=== PATIENT | male | born 1970 | race Caucasian/White ===

== ENCOUNTER 2017-03-27 11:10 | Emergency (ER) | payer OTHER ==
--- NOTE | ~2017-03-27 | CR72 ---
[facility] A Service of [facility] RADIOLOGY TEXT RESULTS PATIENT: LUIGI ORTEGA JR LOCATION: [facility] : 74 UNIT #: [id number] AGE: [address]: Fawn Chen MD SEX: M ORDER DR: [id number] [facility] [address] [place], [place] [address] [id number] E MR#: [id number] #: [id number] NAME: LUIGI ORTEGA JR : 1970 SEX: M STUDY DATE/TIME: 03/27/2017 13:37 UNIT: [facility] ROOM: STUDY DESCRIPTION: CR Chest Single View Portable Attending Physician: Fawn Chen M.D. Ordering Physician: Fawn Cehn M.D. Primary Care Physician: Tresa Georges Np MEDICAL IMAGING REPORT This report is preliminary unless electronic signature is present EXAM Portable chest x-ray, 03/27/2017. HISTORY Trauma. Possible fall. Patient states he falls all the time. Right-sided chest pain. Altered mental status. Short of air. Symptoms began today. TECHNIQUE Two AP radiographs of the chest are presented. COMPARISON 03/12/2016 FINDINGS There are bilateral rib fractures which appear healed and given differences in obliquity appear unchanged from 03/12/2016. There is no clear indication of acute bony abnormality. The heart is upper limits of normal in size. This is stable. The lungs are well inflated without evidence of acute pulmonary disease. No pleural effusion or pneumothorax. No suspicious nodule. Linear atelectasis or scarring at the left lung base. Dictated by... Puma Muro M.D. THIS IS AN ELECTRONICALLY VERIFIED REPORT Puma Muro M.D. at 03/30/2017 5:50 PM VICTORIA/branden [facility] A Service of [facility] RADIOLOGY TEXT RESULTS PATIENT: LUIGI ORTEGA JR LOCATION: [facility] : 74 UNIT #: [id number] AGE: [address]: Fawn Chne MD SEX: M ORDER DR: TD: 03/27/2017 22:17 JOB #: [id number] MEDICAL IMAGING REPORT Page 1 of 1 COPY
--- NOTE | ~2017-03-27 | CT71 ---
[facility] A Service [facility] RADIOLOGY TEXT RESULTS PATIENT: LUIGI ORTEGA JR LOCATION: [facility] : 74 UNIT #: [id number] AGE: [address]: Fawn Chen MD SEX: M ORDER DR: [id number] [facility] [address] [place], [place] [address] [id number] E MR#: [id number] Acc #: [id number] NAME: LUIGI ORTEGA JR : 1970 SEX: M STUDY DATE/TIME: 03/27/2017 16:40 UNIT: [facility] ROOM: STUDY DESCRIPTION: CT Head Wo Contrast Attending Physician: Fawn Chen M.D. Ordering Physician: Fawn Chen M.D. Primary Care Physician: Tresa Georges Np MEDICAL IMAGING REPORT This report is preliminary unless electronic signature is present EXAM Head CT without contrast HISTORY Patient fell today. Head injury. TECHNIQUE Axial images were obtained without contrast. This CT exam was performed with one or more of the following radiation dose reduction techniques: automatic exposure control, adjustment of mA and/or kV according to patient size, and iterative reconstruction. FINDINGS Mild generalized atrophy is seen. There is no evidence of mass lesion, hemorrhage or edema. No midline shift is noted. Extraaxial structures are unremarkable. IMPRESSION Mild atrophy. No acute findings. Dictated by... Mikey Givens M.D. THIS IS AN ELECTRONICALLY VERIFIED REPORT Mikey Givens M.D. at 04/01/2017 4:52 PM RLF/alex TD: 03/27/2017 23:49 JOB #: [id number] [facility] A Service [facility] RADIOLOGY TEXT RESULTS PATIENT: LUIGI ORTEGA JR LOCATION: [facility] : 74 UNIT #: [id number] AGE: [address]: Fawn Chen MD SEX: M ORDER DR: MEDICAL IMAGING REPORT Page 1 of 1 COPY
[~2017-03-27 11:10] MED LIST: ALBUTEROL17 GM; CYANOCOBAL1000 MCG/1 INJ; CYMBALTA30 MG PO; FLEXERIL10 MG PO; GABAPENTIN800 MG PO; LISINOPRIL-HCTZ1 T14 PO; NEURONTIN800 MG PO; NORCO 10/3251 TAB PO; OMEPRAZOLE20 M2 PO; PRILOSEC20 M1 PO; ZYVOX600 MG PO
[2017-03-27 14:23] LABS: URINE SOURCE CLEAN CATCH
[2017-03-27 14:39] LABS: URINE APPEARANCE CLEAR; URINE BILIRUBIN NEG (NEG); URINE BLOOD NEG (NEG); URINE COLOR YELLOW; URINE GLUCOSE NEG (NEG); URINE KETONE NEG (NEG); URINE LEUKOCYTE ESTERASE NEG (NEG); URINE NITRATE NEG (NEG); URINE PH 5.5 (5-8); URINE PROTEIN NEG (NEG); URINE SPECIFIC GRAVITY 1.017 (1.003-1.035); URINE UROBILINOGEN 0.2 MG/DL (NEG)
[2017-03-27 14:44] LABS: CULTURE INDICATED? NO
[2017-03-27 16:25] LABS: AMPHETAMINE NEG (NEG); BARBITURATES NEG (NEG); BENZODIAZEPINES POS (NEG); COCAINE NEG (NEG); MARIJUANA NEG (NEG); OPIATES NEG (NEG); TRICYCLIC ANTIDEPRESSANTS POS (NEG); U METHADONE NEG (NEG)
== END 2017-03-27 18:30 | disposition home or self-care (01) ==
LOC: CED 11:10
PROVIDERS: Emergency Medicine
DX: S80.212A Abrasion, left knee, initial encounter (principal); S80.211A Abrasion, right knee, initial encounter; I10 Essential (primary) hypertension; F17.210 Nicotine dependence, cigarettes, uncomplicated; Z88.2 Allergy status to sulfonamides; Z23 Encounter for immunization; Z79.899 Other long term (current) drug therapy; W19.XXXA Unspecified fall, initial encounter; Y92.009 Unspecified place in unspecified non-institutional (private) residence as the place of occurrence of the external cause
CPT/HCPCS: 70450; 71010; 80307; 81003; 90471; 90715; 99284; G0480